=== PATIENT | female | born 1955 | race Caucasian/White ===

== ENCOUNTER 2016-10-06 11:06 | Emergency (ER) | payer MEDICARE ==
[2016-10-06 11:13] VITALS: RESP 18
[2016-10-06] MEDS ORDERED: SODIUM CHLORIDE 0.9% 1,000 ML IV STA (11:31)
[2016-10-06] MEDS ORDERED: KETOROLAC 30 MG/ML 1 ML VIAL IVP STA (11:31)
[2016-10-06] MEDS ORDERED: METOCLOPRAMIDE 5 MG/ML 2 ML VIAL IVP STA (11:31)
[2016-10-06] MEDS ORDERED: SODIUM CHLORIDE 0.9% 500 ML IV STA (11:31)
[2016-10-06] MEDS ORDERED: DEXAMETHASONE SOD PHOSPHATE 10 MG/ML 1 ML VIAL IV STA (11:32)
--- NOTE | 2016-10-06 11:37 | ED ---
General Adult HPI - General Chief complaint: Recheck/Abnormal Lab/Rx Stated complaint: HYPERTENSION, HEADACHE, SWEATING Time Seen by Provider: 10/06/16 11:16 Source: patient Mode of arrival: ambulatory Limitations: no limitations - History of Present Illness Initial comments: This 61-year-old white female presents with a complaint of a headache. It is on the left facial region and also into the occipital region. It started yesterday. It was not sudden in onset. It gradually worsened. She denies any neck pain. She denies having a history of headaches. It is moderate in severity. She took her blood pressure yesterday and the systolic was elevated at approximately 170. She was worried about her blood pressure and is fairly anxious. She denies any chest pain, shortness of breath, or abdominal pain. She denies any fevers or chills. She has had some moderate nasal congestion and is worried about her sinuses. She states that she stuck Preparation H up with both of her nostrils yesterday and this seemed to help with her nasal congestion. She relates that she has had one episode previously where her blood pressure was elevated but denies any history of chronic hypertension. She does not take any medications for high blood pressure. She denies any other complaints or modifying factors. - Related Data Home Medications Medication Instructions Recorded Confirmed Morphine Sulfate ER [Ms Contin 30 mg PO Q8H 09/21/15 10/06/16 30Mg] fentaNYL 25MCG/HR PATCH [Duragesic 1 patch TRANSDERM Q72H 09/21/15 10/06/16 25Mcg/Hr Patch] ALPRAZolam [Xanax] 0.5 mg PO TID PRN 05/08/16 10/06/16 Previous Rx's Medication Instructions Recorded Amoxicillin/Potassium Clav 1 tab PO Q12HR #20 tab 10/06/16 [Augmentin 875-125 Tablet] Azelastine HCl [Astepro] 2 sprays INTRANASAL BID #1 bottle 10/06/16 Allergies Allergy/AdvReac Type Severity Reaction Status Date / Time Sulfa (Sulfonamide Allergy Rash/Hives Verified 10/06/16 11:44 Antibiotics) Review of Systems ROS Statement: Those systems with pertinent positive or pertinent negative responses have been documented in the HPI. ROS Other: All systems not noted in ROS Statement are negative. Past Medical History Additional Past Medical History / Comment(s): back History of Any Multi-Drug Resistant Organisms: None Reported Past Surgical History: Back Surgery Additional Past Surgical History / Comment(s): lumpectomy Past Psychological History: Anxiety Smoking Status: Never smoker Past Alcohol Use History: None Reported Past Drug Use History: None Reported General Exam - General Exam Comments Initial Comments: GENERAL: The patient is well nourished and well hydrated. VITAL SIGNS: Heart rate, blood pressure, respiratory rate reviewed as recorded in nurse's notes. EYES: Pupils are round and reactive. Extraocular movements are intact. No conjunctival / lid redness or swelling. ENT: No external evidence of injury, swelling, or ecchymosis. Airway is patent. Throat is clear. NECK: Nontender. No swelling or evidence of injury. No subcutaneous emphysema. Trachea is midline. No thyroid mass. HEART: Regular rate and rhythm. Good peripheral pulses. LUNGS/CHEST: Breath sounds clear and equal bilaterally. No rales, rhonchi, or wheezes. No ecchymosis, subcutaneous emphysema, or tenderness. ABDOMEN: Abdomen soft without tenderness. No palpable masses or organomegaly. No peritoneal signs. No abdominal wall swelling or ecchymosis. EXTREMITIES: No extremity tenderness. Normal muscle tone and function. No thoracolumbar tenderness. NEUROLOGIC: Sensation is grossly intact. Cranial nerve exam reveals face is symmetrical, tongue is midline, speech is clear. SKIN: No abrasions or ecchymosis is noted. No induration or masses noted. PSYCHIATRIC: Alert and oriented. Appears moderately anxious. Limitations: no limitations Course Vital Signs 10/06/16 10/06/16 10/06/16 11:10 11:13 12:53 Temperature 98.5 F Pulse Rate 89 75 Respiratory 18 18 Rate Blood Pressure 160/77 140/90 163/68 O2 Sat by Pulse 98 99 Oximetry Medical Decision Making - Medical Decision Making The patient was seen and examined. All diagnostics were reviewed. The EKG shows a normal sinus rhythm at a rate of 77. No acute ST-T wave changes are identified. The IL intervals 122, QRS duration is 76, and QTC intervals 448. She does receive some IV fluids, Reglan, Decadron, and Toradol. She is feeling much improved on recheck. Her blood pressure did come down nicely. The computed tomography scan of the brain is negative for any acute process. The computed tomography scan of the sinuses does show sphenoid sinusitis. The patient also had laboratory work which was all essentially within normal limits. Is felt as though she does have sinusitis with likely sinus cephalgia. She has mild hypertension. She is counseled regarding her diagnosis in detail and leaves in no distress. - Lab Data Result diagrams: 10/06/16 11:54 10/06/16 11:54 Lab Results 10/06/16 10/06/16 Range/Units 11:54 11:54 WBC 3.8 (3.8-10.6) k/uL RBC 4.23 (3.80-5.40) m/uL Hgb 13.4 (11.4-16.0) gm/dL Hct 39.1 (34.0-46.0) % MCV 92.4 (80.0-100.0) fL MCH 31.8 (25.0-35.0) pg MCHC 34.4 (31.0-37.0) g/dL RDW 13.2 (11.5-15.5) % Plt Count 211 (150-450) k/uL Neutrophils % 50 % Lymphocytes % 37 % Monocytes % 6 % Eosinophils % 3 % Basophils % 1 % Neutrophils # 1.9 (1.3-7.7) k/uL Lymphocytes # 1.4 (1.0-4.8) k/uL Monocytes # 0.2 (0-1.0) k/uL Eosinophils # 0.1 (0-0.7) k/uL Basophils # 0.0 (0-0.2) k/uL Sodium 141 (137-145) mmol/L Potassium 4.8 (3.5-5.1) mmol/L Chloride 106 (98-107) mmol/L Carbon Dioxide 27 (22-30) mmol/L Anion Gap 8 mmol/L BUN 11 (7-17) mg/dL Creatinine 0.69 (0.52-1.04) mg/dL Est GFR (MDRD) Af Amer >60 (>60 ml/min/1.73 sqM) Est GFR (MDRD) Non-Af >60 (>60 ml/min/1.73 sqM) Glucose 103 H (74-99) mg/dL Calcium 9.3 (8.4-10.2) mg/dL Disposition Clinical Impression: Sinusitis, Sinus headache, Hypertension Disposition: HOME SELF-CARE Condition: Good Instructions: Sinusitis (ED), Acute Headache (ED), Hypertension (ED) Prescriptions: Amoxicillin/Potassium Clav [Augmentin 875-125 Tablet] 1 tab PO Q12HR #20 tab Azelastine HCl [Astepro] 2 sprays INTRANASAL BID #1 bottle Referrals: Ozzy Ladd DO [Primary Care Provider] - 10/08/16 Time of Disposition: 14:18
[2016-10-06 12:02] LABS: Basophils % (A) 1 %; CH 31.2; CHCM 33.9; Eosinophils # (A) 0.1 k/uL (0-0.7); Eosinophils % (A) 3 %; HCT 39.1 % (34.0-46.0); HDW 2.39; HGB 13.4 gm/dL (11.4-16.0); Luc # (Auto) 0.11; Luc % (Auto) 3; Lymphocytes # (A) 1.4 k/uL (1.0-4.8); Lymphocytes % (A) 37 %; MCH 31.8 pg (25.0-35.0); MCHC 34.4 g/dL (31.0-37.0); MCV 92.4 fL (80.0-100.0); Mean Platelet Volume 6.5; Monocytes # (A) 0.2 k/uL (0-1.0); Monocytes % (A) 6 %; Neutrophils # (A) 1.9 k/uL (1.3-7.7); Neutrophils % (A) 50 %; RBC 4.23 m/uL (3.80-5.40); RDW 13.2 % (11.5-15.5); WBC 3.8 k/uL (3.8-10.6); WBC (Perox) 3.89
[2016-10-06 12:13] LABS: Anion Gap 8 mmol/L; Blood Urea Nitrogen 11 mg/dL (7-17); Calcium 9.3 mg/dL (8.4-10.2); Carbon Dioxide 27 mmol/L (22-30); Chloride 106 mmol/L (98-107); Glucose 103 mg/dL (74-99); Non-African American GFR(MDRD) >60 (>60 ml/min/1.73 sqM); Potassium 4.8 mmol/L (3.5-5.1); Sodium 141 mmol/L (137-145)
--- NOTE | 2016-10-06 12:40 | CT ---
EXAMINATION TYPE: CT brain wo con DATE OF EXAM: 10/06/2016 12:21 PM COMPARISON: NONE HISTORY: Lt eye swelling, DAVE CT DLP: 1628 (brain and sinus) mGycm Automated exposure control for dose reduction was used. FINDINGS: There is no acute intracranial hemorrhage, mass effect, or midline shift identified. The ventricles and sulci are within normal limits in size. There is cortical atrophy which is likely age-related. Th e globes are intact and the visualized sinuses are remarkable for inflammatory change in the sphenoid sinus. IMPRESSION: No acute intracranial hemorrhage, mass effect, or midline shift is seen. Sphenoid sinus disease.
--- NOTE | 2016-10-06 12:42 | CT ---
EXAMINATION TYPE: CT sinus wo con DATE OF EXAM: 10/06/2016 12:21 PM COMPARISON: CT brain same date HISTORY: Lt eye swelling, DAVE CT DLP: 1628 (brain and sinus) mGycm Automated exposure control for dose reduction was used. FINDINGS: Helical imaging through the paranasal sinuses, coronal reconstructions. Inflammatory changes present within the sphenoid sinus. Minimal inflammatory change also present in the left frontal sinus. The or bits show a symmetric appearance. No lytic or blastic lesion evident in the visualized facial bones. Auditory ossicles are symmetric. No thickening of the tympanic membranes. Temporomandibular joints in tact. Ostiomeatal unit are patent bilaterally. Orbits show symmetric and unremarkable appearance. IMPRESSION: SPHENOID SINUS DISEASE.
[2016-10-06 14:25] VITALS: BP 163/73; PULSE 74
[2016-10-06 14:35] VITALS: TEMP 97.7
== END 2016-10-06 14:35 | disposition home or self-care (01) ==
LOC: EC 11:06
DX: J32.3 Chronic sphenoidal sinusitis (principal); I10 Essential (primary) hypertension; Z79.891 Long term (current) use of opiate analgesic; Z88.2 Allergy status to sulfonamides
CPT/HCPCS: 99284; 96374; 96375 ×2; 96361 ×2; 36415; 93005; 80048; 85025; 70450; 70486; J1100; J2765; J1885

== ENCOUNTER 2017-07-08 11:31 | Emergency (ER) | payer MEDICARE ==
--- NOTE | 2017-07-08 12:15 | ED ---
General Adult HPI - General Chief complaint: Recheck/Abnormal Lab/Rx Stated complaint: HYPERTENSION Time Seen by Provider: 07/08/17 11:40 Source: patient, RN notes reviewed Mode of arrival: wheelchair Limitations: no limitations - History of Present Illness Initial comments: This is a 62-year-old female who comes into the emergency department stating that she is having high blood pressure today. Patient states the only symptom she has noticed is some ringing in her ear. Patient denies any headache patient denies numbness weakness. Patient denies any chest pain palpitations difficulty breathing or shortness of breath. Patient denies any abdominal pain patient denies nausea vomiting diarrhea. Patient denies being lightheaded or dizzy. Patient denies any near syncopal episodes. Patient states the reason she knew her blood pressure was elevated because she had taken today when she saw her physician. - Related Data Home Medications Medication Instructions Recorded Confirmed Morphine Sulfate ER [Ms Contin 30 mg PO Q8H 09/21/15 07/08/17 30Mg] fentaNYL 25MCG/HR PATCH [Duragesic 1 patch TRANSDERM Q72H 09/21/15 07/08/17 25Mcg/Hr Patch] ALPRAZolam [Xanax] 0.5 mg PO TID PRN 05/08/16 07/08/17 Previous Rx's Medication Instructions Recorded Lisinopril [Zestril] 10 mg PO DAILY #15 tab 07/08/17 Allergies Allergy/AdvReac Type Severity Reaction Status Date / Time Sulfa (Sulfonamide Allergy Rash/Hives Verified 07/08/17 12:10 Antibiotics) buspirone [From BuSpar] AdvReac Unknown Verified 07/08/17 12:10 [email or web address] [From Lunesta] AdvReac Unknown Verified 07/08/17 12:10 [email or web address] [From Ambien] AdvReac Unknown Verified 07/08/17 12:10 Review of Systems ROS Statement: Those systems with pertinent positive or pertinent negative responses have been documented in the HPI. ROS Other: All systems not noted in ROS Statement are negative. Past Medical History Past Medical History: Fibromyalgia Additional Past Medical History / Comment(s): chronic back pain History of Any Multi-Drug Resistant Organisms: None Reported Past Surgical History: Back Surgery Additional Past Surgical History / Comment(s): lumpectomy Past Psychological History: Anxiety Smoking Status: Never smoker Past Alcohol Use History: None Reported Past Drug Use History: None Reported General Exam - General Exam Comments Initial Comments: GENERAL: Patient is well-developed and well-nourished. Patient is nontoxic and well- hydrated and is in no acute distress. ENT: Neck is soft and supple. No significant lymphadenopathy is noted. Oropharynx is clear. Moist mucous membranes. Neck has full range of motion without eliciting any pain. EYES: The sclera were anicteric and conjunctiva were pink and moist. Extraocular movements were intact and pupils were equal round and reactive to light. Eyelids were unremarkable. PULMONARY: Unlabored respirations. Good breath sounds bilaterally. No audible rales rhonchi or wheezing was noted. CARDIOVASCULAR: There is a regular rate and rhythm without any murmurs gallops or rubs. ABDOMEN: Soft and nontender with normal bowel sounds. No palpable organomegaly was noted. There is no palpable pulsatile mass. SKIN: Skin is clear with no lesions or rashes and otherwise unremarkable. NEUROLOGIC: Patient is alert and oriented x3. Cranial nerves II through XII are grossly intact. Motor and sensory are also intact. Normal speech, volume and content. Symmetrical smile. MUSCULOSKELETAL: Normal extremities with adequate strength and full range of motion. No lower extremity swelling or edema. No calf tenderness. LYMPHATICS: No significant lymphadenopathy is noted PSYCHIATRIC: Normal psychiatric evaluation. Normal interpersonal interactions appears functionally intact in deals appropriately with others. No signs of depression. No signs of anxiety. Limitations: no limitations Course Vital Signs 07/08/17 07/08/17 07/08/17 11:42 12:17 12:55 Temperature 97.7 F Pulse Rate 103 H 96 87 Respiratory 20 18 16 Rate Blood Pressure 193/95 162/97 149/84 O2 Sat by Pulse 98 94 L 96 Oximetry Medical Decision Making - Medical Decision Making EKG shows a normal sinus rhythm at 92 bpm SD interval is 132 QRS is 72 QT interval 362 QTC is 447 per patient's EKG shows no ST segment elevation or depression or T wave abnormalities are noted Chest x-ray showed no acute abnormality. Patient cut hydralazine in the emergency department her blood pressure came down within the normal range. Patient remained asymptomatic in the emergency department sent the patient will be discharged home. - Lab Data Result diagrams: 07/08/17 12:20 07/08/17 12:20 Lab Results 07/08/17 07/08/17 07/08/17 Range/Units 12:20 12:20 12:20 WBC 5.6 (3.8-10.6) k/uL RBC 4.67 (3.80-5.40) m/uL Hgb 13.4 (11.4-16.0) gm/dL Hct 42.2 (34.0-46.0) % MCV 90.3 (80.0-100.0) fL MCH 28.7 (25.0-35.0) pg MCHC 31.8 (31.0-37.0) g/dL RDW 14.7 (11.5-15.5) % Plt Count 271 (150-450) k/uL Neutrophils % 55 % Lymphocytes % 34 % Monocytes % 6 % Eosinophils % 3 % Basophils % 1 % Neutrophils # 3.1 (1.3-7.7) k/uL Lymphocytes # 1.9 (1.0-4.8) k/uL Monocytes # 0.3 (0-1.0) k/uL Eosinophils # 0.2 (0-0.7) k/uL Basophils # 0.1 (0-0.2) k/uL PT (9.0-12.0) sec INR (<1.2) APTT (22.0-30.0) sec Sodium 144 (137-145) mmol/L Potassium 4.6 (3.5-5.1) mmol/L Chloride 110 H (98-107) mmol/L Carbon Dioxide 23 (22-30) mmol/L Anion Gap 11 mmol/L BUN 10 (7-17) mg/dL Creatinine 1.04 (0.52-1.04) mg/dL Est GFR (MDRD) Af Amer >60 (>60 ml/min/1.73 sqM) Est GFR (MDRD) Non-Af 54 (>60 ml/min/1.73 sqM) Glucose 117 H (74-99) mg/dL Calcium 9.6 (8.4-10.2) mg/dL Magnesium 2.3 (1.6-2.3) mg/dL Total Bilirubin 0.3 (0.2-1.3) mg/dL AST 23 (14-36) U/L ALT 26 (9-52) U/L Alkaline Phosphatase 74 (38-126) U/L Total Creatine Kinase 77 (30-135) U/L CK-MB (CK-2) 0.6 (0.0-2.4) ng/mL CK-MB (CK-2) Rel Index 0.8 Troponin I <0.012 (0.000-0.034) ng/mL Total Protein 7.7 (6.3-8.2) g/dL Albumin 4.5 (3.5-5.0) g/dL 07/08/17 Range/Units 12:20 WBC (3.8-10.6) k/uL RBC (3.80-5.40) m/uL Hgb (11.4-16.0) gm/dL Hct (34.0-46.0) % MCV (80.0-100.0) fL MCH (25.0-35.0) pg MCHC (31.0-37.0) g/dL RDW (11.5-15.5) % Plt Count (150-450) k/uL Neutrophils % % Lymphocytes % % Monocytes % % Eosinophils % % Basophils % % Neutrophils # (1.3-7.7) k/uL Lymphocytes # (1.0-4.8) k/uL Monocytes # (0-1.0) k/uL Eosinophils # (0-0.7) k/uL Basophils # (0-0.2) k/uL PT 9.6 (9.0-12.0) sec INR 1.0 (<1.2) APTT 24.6 (22.0-30.0) sec Sodium (137-145) mmol/L Potassium (3.5-5.1) mmol/L Chloride (98-107) mmol/L Carbon Dioxide (22-30) mmol/L Anion Gap mmol/L BUN (7-17) mg/dL Creatinine (0.52-1.04) mg/dL Est GFR (MDRD) Af Amer (>60 ml/min/1.73 sqM) Est GFR (MDRD) Non-Af (>60 ml/min/1.73 sqM) Glucose (74-99) mg/dL Calcium (8.4-10.2) mg/dL Magnesium (1.6-2.3) mg/dL Total Bilirubin (0.2-1.3) mg/dL AST (14-36) U/L ALT (9-52) U/L Alkaline Phosphatase (38-126) U/L Total Creatine Kinase (30-135) U/L CK-MB (CK-2) (0.0-2.4) ng/mL CK-MB (CK-2) Rel Index Troponin I (0.000-0.034) ng/mL Total Protein (6.3-8.2) g/dL Albumin (3.5-5.0) g/dL Disposition Clinical Impression: Hypertension Disposition: HOME SELF-CARE Condition: Good Instructions: Hypertension (ED) Prescriptions: Lisinopril [Zestril] 10 mg PO DAILY #15 tab Referrals: Ozzy Ladd DO [Primary Care Provider] - 1-2 days Time of Disposition: 13:30
[2017-07-08] MEDS ORDERED: hydrALAZINE HCL 20 MG/ML 1 ML VIAL IVP STA (12:16)
[2017-07-08 12:51] LABS: Basophils # (A) 0.1 k/uL (0-0.2); Basophils % (A) 1 %; Eosinophils # (A) 0.2 k/uL (0-0.7); Eosinophils % (A) 3 %; HCT 42.2 % (34.0-46.0); HGB 13.4 gm/dL (11.4-16.0); Lymphocytes # (A) 1.9 k/uL (1.0-4.8); Lymphocytes % (A) 34 %; MCH 28.7 pg (25.0-35.0); MCHC 31.8 g/dL (31.0-37.0); MCV 90.3 fL (80.0-100.0); Mean Platelet Volume 7.4; Monocytes # (A) 0.3 k/uL (0-1.0); Monocytes % (A) 6 %; Neutrophils # (A) 3.1 k/uL (1.3-7.7); Neutrophils % (A) 55 %; Platelet Count 271 k/uL (150-450); RBC 4.67 m/uL (3.80-5.40); RDW 14.7 % (11.5-15.5); WBC 5.6 k/uL (3.8-10.6)
[2017-07-08 12:55] LABS: Partial Thromboplastin Time 24.6 sec (22.0-30.0); Prothrombin Time 9.6 sec (9.0-12.0)
[2017-07-08 12:57] LABS: ALT 26 U/L (9-52); AST 23 U/L (14-36); Albumin 4.5 g/dL (3.5-5.0); Alkaline Phosphatase 74 U/L (38-126); Anion Gap 11 mmol/L; Blood Urea Nitrogen 10 mg/dL (7-17); Calcium 9.6 mg/dL (8.4-10.2); Carbon Dioxide 23 mmol/L (22-30); Chloride 110 mmol/L (98-107); Glucose 117 mg/dL (74-99); Magnesium 2.3 mg/dL (1.6-2.3); Potassium 4.6 mmol/L (3.5-5.1); Sodium 144 mmol/L (137-145); Total Bilirubin 0.3 mg/dL (0.2-1.3); Total Protein 7.7 g/dL (6.3-8.2)
[2017-07-08 13:00] LABS: Creatine Kinase 77 U/L (30-135)
--- NOTE | 2017-07-08 13:00 | XR ---
EXAMINATION TYPE: XR chest 2V DATE OF EXAM: 07/08/2017 COMPARISON: 09/21/2015 HISTORY: Shortness of breath TECHNIQUE: Frontal and lateral views of the chest are obtained. FINDINGS: Scattered senescent parenchymal changes noted. No evidence for infiltrate. No evidence for atelectasis. Heart size is stable. Mediastinal structures are stable and grossly unremarkable. No evidence for hilar prominence. Degenerative changes dorsal spine. IMPRESSION: 1. No evidence for acute pulmonary disease.
[2017-07-08 13:13] LABS: Creatine Kinase MB 0.6 ng/mL (0.0-2.4); Troponin I <0.012 ng/mL (0.000-0.034)
[2017-07-08 13:51] VITALS: BP 128/75; PULSE 88; RESP 18; TEMP 98.2
== END 2017-07-08 13:51 | disposition home or self-care (01) ==
LOC: EC 11:31
DX: I10 Essential (primary) hypertension (principal); Z79.891 Long term (current) use of opiate analgesic; Z88.2 Allergy status to sulfonamides; Z88.8 Allergy status to other drugs, medicaments and biological substances
CPT/HCPCS: 36415; 93005; 80053; 82550; 82553; 83735; 84484; 85025; 85610; 85730; 71046; 99283; 96374; J0360